=== PATIENT | female | born 1970 | race Caucasian/White ===

== ENCOUNTER 2017-11-02 17:30 | Emergency (ER) | payer OTHER ==
--- NOTE | 2017-11-02 18:38 | XRAY Report ---
EXAM: CHEST RADIOGRAPHY EXAM DATE: 11/02/2017 06:17 PM. CLINICAL HISTORY: Left chest pain and upper arm pain for 2 days. COMPARISON: None. TECHNIQUE: 2 views. FINDINGS: Lungs/Pleura: Right middle lobe calcified granuloma, otherwise no focal opacities evident. No pleural effusion. No pneumothorax. Normal volumes. Mediastinum: Heart and mediastinal contours are unremarkable. Other: No bony abnormalities noted. IMPRESSION: Right base calcified granuloma, otherwise unremarkable 2-view chest radiography. [facility] Referring Provider Line: [phone] SITE ID: [id number]
[2017-11-02 19:09] LABS: BASOPHILS # (AUTO) 0.1 10^3/uL (0.0-0.1); BASOPHILS % (AUTO) 0.7 %; EOSINOPHILS # (AUTO) 0.2 10^3/uL (0.0-0.7); HGB - HEMOGLOBIN 13.6 g/dL (12.0-16.0); LYMPHOCYTES # (AUTO) 3.4 10^3/uL (1.5-3.5); LYMPHOCYTES % (AUTO) 37.5 %; MEAN CORPUSCULAR HEMOGLOBIN 28.8 pg (27.0-31.0); MEAN CORPUSCULAR HGB CONC 33.7 g/dL (32.0-36.0); MEAN CORPUSCULAR VOLUME 85.4 fL (81.0-99.0); MEAN PLATELET VOLUME 8.3 fL (7.9-10.8); MONOCYTES # (AUTO) 0.6 10^3/uL (0.0-1.0); MONOCYTES % (AUTO) 6.5 %; NEUTROPHILS # (AUTO) 4.9 10^3/uL (1.5-6.6); NEUTROPHILS % (AUTO) 53.3 %; PLT - PLATELET COUNT 230 10^3/uL (130-450); RED BLOOD COUNT 4.71 10^6/uL (4.20-5.40); RED CELL DISTRIBUTION WIDTH 12.6 % (12.0-15.0); WHITE BLOOD COUNT 9.1 x10^3/uL (4.8-10.8)
[2017-11-02 19:20] LABS: ALBUMIN 4.3 g/dL (3.2-5.5); ALBUMIN/GLOBULIN RATIO 1.5 (1.0-2.2); BILIRUBIN,TOTAL 0.3 mg/dL (0.2-1.0); CREATININE 0.8 mg/dL (0.4-1.0); TOTAL PROTEIN 7.1 g/dL (6.7-8.2)
--- NOTE | 2017-11-02 19:43 | ED Physician Documentation ---
History of Present Illness - Stated complaint Stated Complaint: CHEST PX/ARM PX - Chief complaint Chief Complaint: Cardiac - History obtained from History obtained from: Patient - History of Present Illness Timing: How many days ago (2) Pain level max: 3 Pain level now: 3 Improved by: rest Worsened by: movement, palpation - Additonal information Additional information: Patient states that 2 days ago she felt a squeezing pain on the left side of her neck. This felt like a muscular spasm, she is in been "sore on the left side of her neck and upper chest. Worse with turning her head. Better with rest. Also worse with palpation. No visual changes. No shortness of breath. No vomiting. No diaphoresis. No history of cardiac issues. No coughing. Review of Systems Ten Systems: 10 systems reviewed and negative Constitutional: denies: Fever, Chills Ears: denies: Ear pain Nose: denies: Rhinorrhea / runny nose, Congestion Throat: denies: Sore throat Cardiac: denies: Palpitations Respiratory: denies: Cough, Wheezing GI: denies: Abdominal Pain, Nausea, Vomiting, Diarrhea, Hematemesis, Bloody / black stool : denies: Dysuria, Discharge Skin: denies: Rash Musculoskeletal: denies: Neck pain, Back pain Neurologic: denies: Headache PD PAST MEDICAL HISTORY - Past Medical History Past Medical History: Yes Psych: Bipolar disorder Musculoskeletal: Osteoarthritis - Past Surgical History Past Surgical History: Yes General: 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 - Present Medications Home Medications: Ambulatory Orders Medication Instructions Recorded Confirmed lamoTRIgine [Lamictal] 200 mg PO DAILY 03/14/14 01/25/15 Dexamethasone [Decadron] 4 mg PO DAILY #5 tablet 01/25/15 Ondansetron HCl [Zofran] 4 mg PO Q6H PRN #30 tablet 01/25/15 Oxycodone HCl/Acetaminophen 1 - 2 each PO Q6H PRN #30 tablet 01/25/15 [Percocet 5-325 mg Tablet] - Allergies Allergies/Adverse Reactions: Allergies Allergy/AdvReac Type Severity Reaction Status Date / Time acetaminophen [From Vicodin] Allergy Nausea Verified 03/14/14 09:57 codeine Allergy Emesis Verified 03/14/14 09:57 hydrocodone bitartrate * Allergy Nausea Verified 03/14/14 09:57 [From Vicodin] naproxen Allergy Hives Verified 03/14/14 09:57 - Living Situation Living Arrangement: reports: At home - Social History Does the pt smoke?: Yes Smoking Status: Current every day smoker Does the pt drink ETOH?: No Does the pt have substance abuse?: No - Family History Family history: reports: Non contributory - POLST Patient has POLST: No PD ED PE NORMAL - Vitals Vital signs reviewed: Yes - General General: Alert and oriented X 3, No acute distress - HEENT HEENT: PERRL, Ears normal, Moist mucous membranes, Pharynx benign - Neck Neck: Supple, no meningeal sign, No bony TTP, No JVD, No bruit, Other (Tender to palpation over the left trapezial ridge, this reproduces her pain. 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, No motor deficit, No sensory deficit, Normal speech - Psych Psych: Normal mood, Normal affect Results - Vitals Vitals: Vital Signs - 24 hr 11/02/17 11/02/17 11/02/17 17:36 19:37 20:52 Temperature 36.6 C 36.7 C 36.3 C L Heart Rate 87 81 74 Respiratory 16 18 18 Rate Blood Pressure 138/78 H 108/84 H 120/89 H O2 Saturation 97 94 96 Oxygen O2 Source Room air - EKG (time done) 1736 Rate: Rate (enter#) (102) Rhythm: Sinus tachycardia [place]: Normal Intervals: Normal [place] QRS: Normal Ischemia: Other (diffuse T wave inversion) - Labs Labs: Laboratory Tests 11/02/17 11/02/17 11/02/17 18:45 18:45 18:45 WBC 9.1 RBC 4.71 Hgb 13.6 Hct 40.2 MCV 85.4 MCH 28.8 MCHC 33.7 RDW 12.6 Plt Count 230 MPV 8.3 Neut # 4.9 Lymph # 3.4 [place] # 0.6 Eos # 0.2 Baso # 0.1 Absolute Nucleated RBC 0.00 Nucleated RBC % 0.0 Sodium 139 Potassium 3.5 Chloride 106 Carbon Dioxide 24 Anion Gap 9.0 BUN 10 Creatinine 0.8 Estimated GFR (MDRD) 77 L Glucose 112 H Calcium 9.0 Total Bilirubin 0.3 AST 22 ALT 22 Alkaline Phosphatase 85 Troponin I < 0.04 Total Protein 7.1 Albumin 4.3 Globulin 2.8 Albumin/Globulin Ratio 1.5 Lipase 27 - Rads (name of study) Chest x-ray Radiology: Prelim report reviewed, EMP read contemporaneously, See rad report ( No acute disease) PD MEDICAL DECISION MAKING - ED course Complexity details: reviewed results, re-evaluated patient, considered differential (No ST elevation NC, no aortic dissection, no PE, no tension pneumothorax, no aortic aneurysm), d/w patient ED course: Patient is a 47-year-old female who presents to the emergency department with what sounds like an left-sided neck spasm. Unclear etiology. No recent trauma , heavy lifting change in pillows or mattresses. Abdomen is soft, nontender nondistended. No peritoneal signs. No evidence of acute NC. No evidence of pneumothorax. No evidence of carotid dissection. We will continue supportive care and follow-up with her doctor. Patient counseled regarding signs and symptoms for which I believe and urgent re-evaluation would be necessary. Patient with good understanding of and agreement to plan and is comfortable going home at this time This document was made in part using voice recognition software. While efforts are made to proofread this document, sound alike and grammatical errors may occur. Departure - Departure Disposition: 01 Home, Self Care Clinical Impression: Muscle spasm Chest pain Qualifiers: Chest pain type: unspecified Qualified Code(s): R07.9 - Chest pain, unspecified Condition: Good Instructions: ED Chest Pain Atypical Unkn Cause Follow-Up: your,doctor in 1 week [Other] Comments: This appears to be related to muscle spasm in your neck. Return if you worsen. Follow up with your doctor for a cardiac stress test as you do have a slightly abnormal EKG. Discharge Date/Time: 11/02/17 20:58
[2017-11-02 20:53] VITALS: BP 120/89
== END 2017-11-02 20:58 | disposition home or self-care (01) ==
LOC: ED 17:30
DX: M62.838 Other muscle spasm (principal); R07.9 Chest pain, unspecified; R00.0 Tachycardia, unspecified; F17.200 Nicotine dependence, unspecified, uncomplicated
CPT/HCPCS: 36415; 71046; 80053; 83690; 84484; 85025; 93005; 99283; 99285